=== PATIENT | male | born 1955 | race Caucasian/White ===

== ENCOUNTER 2017-12-18 09:15 | Inpatient (IN) | payer MEDICAID ==
[~2017-12-18] VITALS: Ht 170.2 cm; Wt 115.2 kg
[2017-12-18 09:23] VITALS: Ht 170.2 cm; Wt 115.2 kg
[2017-12-18 10:15] LABS: BASOPHIL % 0.6 % (0-2); CALCIUM 9.3 mg/dL (8.5-10.1); CARBON DIOXIDE 28.1 mmol/L (21-32); CHLORIDE SERUM 102 mmol/L (98-107); CREATININE SERUM 1.1 mg/dL (0.7-1.3); GFR1 > 60 mL/min; GLUCOSE SERUM 105 mg/dL (74-106); PLATELET COUNT 234 x10^3mcL (130-400); RED CELL DISTRIBUTION WIDTH 13.6 % (11.5-14.5); SODIUM SERUM 138 mmol/L (136-145)
[2017-12-18 10:17] LABS: ALBUMIN 3.7 g/dL (3.4-5.0); ALKALINE PHOSPHATASE 155 U/L (46-116); ALT/SGPT 57 U/L (16-63); AST/SGOT 25 U/L (15-37); BILIRUBIN TOTAL 0.3 mg/dL (0.20-1.00); TOTAL PROTEIN, SERUM 7.6 g/dL (6.4-8.2)
[2017-12-18] MEDS ORDERED: FLO4 PO ×3 (10:59→11:04)
[2017-12-18] MEDS ORDERED: ATENOLOL25 MG PO ×3 (10:59→11:05)
[2017-12-18] MEDS ORDERED: EFFEXOR-XR150 MG PO (11:00)
[2017-12-18 11:39] LABS: microscopic required? NO
[2017-12-18 12:20] LABS: UA SPECIFIC GRAVITY 1.025 (1.005-1.035); urine erythrocyte NEGATIVE (NEGATIVE)
[2017-12-18 12:45] LABS: AMPHETAMINE QUAL UR NONE DETECTED (NEG <=1000)
[2017-12-18 13:35] VITALS: BP 128/82
[2017-12-18 13:56] LABS: T3 TOTAL 1.35 ng/mL
[2017-12-18 14:05] LABS: AMYLASE 38 U/L (25-115); LIPASE 199 IU/L (73-393); PHOSPHOROUS 3.7 mg/dL (2.5-4.9)
[2017-12-18 14:09] LABS: CHOLESTEROL 243 mg/dL (<200); CHOLESTEROL/HDL RATIO 15.2; HDL CHOLESTEROL 16 mg/dL (40-60); TRIGLYCERIDES 676 mg/dL (<150)
[2017-12-18 14:16] LABS: FREE T4 1.04 ng/dL (0.76-1.46); FREE THYROXINE INDEX 2.6 ug/dL (1.4-4.5); T4(THYROXINE) 8.2 ug/dL (4.7-13.3)
[2017-12-18 16:50] VITALS: BP 122/65
[2017-12-18 21:00] VITALS: BP 121/62
[2017-12-19 06:46] VITALS: BP 135/81
[2017-12-19 07:51] LABS: BASOPHIL % 0.7 % (0-2); PLATELET COUNT 159 x10^3mcL (130-400); RED CELL DISTRIBUTION WIDTH 13.3 % (11.5-14.5)
[2017-12-19 08:18] LABS: CALCIUM 8.8 mg/dL (8.5-10.1); CARBON DIOXIDE 30.2 mmol/L (21-32); CHLORIDE SERUM 102 mmol/L (98-107); CREATININE SERUM 0.9 mg/dL (0.7-1.3); GFR1 > 60 mL/min; GLUCOSE SERUM 116 mg/dL (74-106); MAGNESIUM 2.1 mg/dL (1.8-2.4); PHOSPHOROUS 3.4 mg/dL (2.5-4.9); POTASSIUM SERUM 4.2 mmol/L (3.5-5.1); SODIUM SERUM 137 mmol/L (136-145)
[2017-12-19] MEDS ORDERED: LIPI10 PO (08:39)
[2017-12-19] MEDS ORDERED: BAY PO (08:41)
[2017-12-19 09:38] VITALS: BP 136/73
[2017-12-19] MEDS ORDERED: TRICOR48 M1 PO (12:02)
[2017-12-19 12:29] VITALS: BP 136/73
[2017-12-19 13:01] VITALS: BP 124/71
== END 2017-12-19 14:08 | disposition home or self-care (01) | DRG 48 ==
LOC: ED 09:15 → DU 10:30
PROVIDERS: Emergency Medicine; Family Medicine Sports Medicine
DX: G90.9 Disorder of the autonomic nervous system, unspecified (principal); E66.01 Morbid (severe) obesity due to excess calories; I10 Essential (primary) hypertension; E03.9 Hypothyroidism, unspecified; E78.5 Hyperlipidemia, unspecified; R73.03 Prediabetes; N40.0 Benign prostatic hyperplasia without lower urinary tract symptoms; E66.3 Overweight; Z68.39 Body mass index [BMI] 39.0-39.9, adult; Z87.891 Personal history of nicotine dependence
CPT/HCPCS: 83880; 84439; J7030; J7040; J8597; Q0092